=== PATIENT | female | born 1995 | race Hispanic/Latino ===

== ENCOUNTER 2021-12-24 22:15 | Emergency (ER) | payer BC | END 2021-12-24 22:26 | disposition left against medical advice (07) | LOC: ERS 22:15 | DX: Z53.21 Procedure and treatment not carried out due to patient leaving prior to being seen by health care provider (principal) ==

== ENCOUNTER 2022-09-12 19:05 | Emergency (ER) | payer OTHER, MEDICAID ==
[2022-09-12] MEDS ORDERED: Cyclobenzaprine 10 MG TAB ONE (20:33)
[2022-09-12] MEDS ORDERED: Ketorolac Tromethamine 30 MG/ML VIAL ONE (20:33)
[2022-09-12] MEDS ORDERED: Acetaminophen/Codeine 30-300mg Tablet ONE (20:33)
== END 2022-09-12 20:52 | disposition home or self-care (01) ==
LOC: ERS 19:05
DX: S39.012A Strain of muscle, fascia and tendon of lower back, initial encounter (principal); S20.211A Contusion of right front wall of thorax, initial encounter; R10.9 Unspecified abdominal pain; V49.9XXA Car occupant (driver) (passenger) injured in unspecified traffic accident, initial encounter
CPT/HCPCS: 72072; 74176; 96372; J1885

== ENCOUNTER 2022-11-30 14:04 | Emergency (ER) | payer OTHER, MEDICAID | END 2022-11-30 17:28 | disposition home or self-care (01) | LOC: ERS 14:04 | DX: S13.4XXA Sprain of ligaments of cervical spine, initial encounter (principal); M54.6 Pain in thoracic spine; V89.2XXA Person injured in unspecified motor-vehicle accident, traffic, initial encounter | CPT/HCPCS: 72072; 72125 ==